=== PATIENT | female | born 1940 | race Caucasian/White ===

== ENCOUNTER 2018-03-06 16:42 | Emergency (ER) | payer MEDICARE, OTHER ==
[2018-03-06] MEDS ORDERED: Diltiazem 25 MG/5 ML SDV IVPUSH ONE (16:53)
[2018-03-06] MEDS ORDERED: Sodium Chloride 0.9% 10 ML Syringe FLUSH PRN (16:53)
--- NOTE | 2018-03-06 17:12 | EDM.PDOC ---
ED HPI GENERAL MEDICAL PROBLEM - General Chief Complaint: Chest Pain Stated Complaint: chest pain Time Seen by Provider: 03/06/18 16:53 Source of Information: Reports: Patient History Limitations: Reports: No Limitations - History of Present Illness INITIAL COMMENTS - FREE TEXT/NARRATIVE: Patient was seen in the [facility] and sent here for further evaluation due to chest pain. She states chest pain started at 3 pm. She took a nitro x1 which had no effect except to cause a headache. She states that the chest pain is centrally located and there is no radiation to the neck, jaw, or either arms. She also states she has some urinary burning that started yesterday. She has history of coronary stent to the LAD in 2001, left leg stent in 2009. Additional medical history includes DM II, hyperlipidemia, chronic SI back pain , COPD, PVD. EKG on arrival shows a-fib with RVR which is new onset. She denies abdominal pain, nausea, vomiting, blood in urine or stool. She states she has dyspnea, but this is not new and it is not worse. Onset: Sudden Location: Reports: Chest Quality: Reports: Ache Severity: Moderate Worsens with: Reports: Movement Associated Symptoms: Reports: Chest Pain - Related Data Allergies Allergy/AdvReac Type Severity Reaction Status Date / Time DUST MITE EXTRACT Allergy Itching Uncoded 03/06/18 17:46 Home Meds: Home Meds Albuterol Sulfate [Albuterol Sulfate HFA] 2 puff INH Q4H PRN 06/13/14 [History] Atenolol 25 mg PO DAILY 06/13/14 [History] Lisinopril 10 mg PO DAILY 06/13/14 [History] Nitroglycerin [Nitrostat] 0.4 mg SL ASDIRECTED PRN 06/13/14 [History] Catie-Pa 1 tab PO DAILY PRN 06/13/14 [History] Simvastatin [Zocor] 40 mg PO DAILY 06/13/14 [History] metFORMIN [Glucophage XR] 1,000 mg PO BID 06/13/14 [History] Aspirin [Halfprin] 81 mg PO DAILY 10/13/15 [History] Hydrocodone/Acetaminophen [[place] 5-325] 1 - 2 tab PO Q6H PRN 10/13/15 [History] Ibuprofen [Motrin] 800 mg PO TID PRN 10/13/15 [History] Gabapentin 300 mg PO BID 06/07/16 [History] Omeprazole 20 mg PO DAILY 06/07/16 [History] Metoprolol Tartrate [Lopressor] 25 mg PO DAILY 03/06/18 [History] Pregabalin [Lyrica] 150 mg PO BID 03/06/18 [History] Past Medical History HEENT History: Reports: Cataract Cardiovascular History: Reports: CAD, High Cholesterol, Hypertension, [place], PVD Other Cardiovascular History: carotid stenosis Respiratory History: Reports: COPD Gastrointestinal History: Reports: Irritable Bowel Syndrome Other Gastrointestinal History: RLQ abdominal pain Other Genitourinary History: hematuria Other IN SCHOOL SUSPENSION AIDE History: DDD, degnerative disc disease, cervical and lumbar. foraminal stenosis of cervical region. foraminal stenosis of lumbar region. lumbar disc herniation. bilateral shoulder pain Musculoskeletal History: Reports: Back Pain, Chronic, Osteoporosis Other Musculoskeletal History: orif left heel Neurological History: Reports: Neuropathy, Diabetic Other Psychiatric History: tobacco use Endocrine/Metabolic History: Reports: Diabetes, Type II - Infectious Disease History Infectious Disease History: Reports: None - Past Surgical History Cardiovascular Surgical History: Reports: Coronary Artery Stent Musculoskeletal Surgical History: Reports: Carpal Tunnel ED ROS GENERAL - Review of Systems Review Of Systems: See Below Constitutional: Reports: No Symptoms HEENT: Reports: No Symptoms Respiratory: Reports: Shortness of Breath Cardiovascular: Reports: Chest Pain, Dyspnea on Exertion Endocrine: Reports: No Symptoms GI/Abdominal: Reports: No Symptoms : Reports: No Symptoms Musculoskeletal: Reports: Back Pain Skin: Reports: No Symptoms Neurological: Reports: No Symptoms Psychiatric: Reports: No Symptoms Hematologic/Lymphatic: Reports: No Symptoms Immunologic: Reports: No Symptoms ED EXAM, GENERAL - Physical Exam Exam: See Below Exam Limited By: No Limitations General Appearance: Alert, WD/WN, No Apparent Distress Eye Exam: Bilateral Eye: EOMI, Normal Inspection, PERRL Ears: Normal TMs Ear Exam: Bilateral Ear: Auricle Normal, Canal Normal, TM normal Nose: Normal Inspection, Normal Mucosa, No Blood Head: Atraumatic, Normocephalic Neck: Normal Inspection, Supple, Non-Tender, Full Range of Motion Respiratory/Chest: No Respiratory Distress, Lungs Clear, Normal Breath Sounds, No Accessory Muscle Use, Chest Non-Tender Cardiovascular: No Edema, Irregularly Irregular Peripheral Pulses: 2+: Posterior Tibial (L), Posterior Tibial (R), Dorsalis Pedis (L), Dorsalis Pedis (R) GI/Abdominal: Normal Bowel Sounds, Soft, Non-Tender, No Organomegaly, No Distention, No Abnormal Bruit, No Mass Back Exam: Normal Inspection, Full Range of Motion, NT Extremities: Normal Inspection, Normal Range of Motion, Non-Tender, Normal Capillary Refill, No Pedal Edema Neurological: Alert, Oriented, CN II-XII Intact, Normal Cognition, Normal Gait, Normal Reflexes, No Motor/Sensory Deficits Psychiatric: Normal Affect, Normal Mood Skin Exam: Warm, Dry, Intact, Normal Color, No Rash Lymphatic: No Adenopathy Course - Vital Signs Last Recorded V/S: Last Vital Signs Temp 36.3 C 03/06/18 16:42 Pulse 141 H 03/06/18 19:01 Resp 16 03/06/18 19:01 BP 121/77 03/06/18 19:01 Pulse Ox 97 03/06/18 19:01 - Orders/Labs/Meds Orders: Active Orders 24 hr Category Date Time Status EKG Documentation Completion [RC] STAT Care 03/06/18 16:53 Active Chest 2V [CR] Stat Exams 03/06/18 16:53 Taken Chest PE [Ang Chest] [CT] Stat Exams 03/06/18 18:03 Ordered CBC W/O DIFF,HEMOGRAM [HEME] Q3D Lab 03/07/18 07:00 Ordered CBC W/O DIFF,HEMOGRAM [HEME] Q3D Lab 03/10/18 07:00 Ordered CBC W/O DIFF,HEMOGRAM [HEME] Q3D Lab 03/13/18 07:00 Ordered CBC W/O DIFF,HEMOGRAM [HEME] Q3D Lab 03/16/18 07:00 Ordered CBC W/O DIFF,HEMOGRAM [HEME] Q3D Lab 03/19/18 07:00 Ordered CBC W/O DIFF,HEMOGRAM [HEME] Q3D Lab 03/22/18 07:00 Ordered CBC W/O DIFF,HEMOGRAM [HEME] Q3D Lab 03/25/18 07:00 Ordered URINALYSIS W/MICROSCOPIC [UA W/MICROSCOPIC] [URIN] Stat Lab 03/06/18 17:55 Ordered Diltiazem 100 MG in NS Adv @ 5 MG/HR(100ml) Med 03/06/18 19:00 Ordered Diltiazem [Cardizem] 100 mg Sodium Chloride 0.9% [Normal Saline] 100 ml IV TITRATE Heparin Sodium/0.45% NaCl [Heparin 25,000 Units in 1/2 Med 03/06/18 19:00 Ordered NS 500 ML] 25,000 units in 500 ml IV TITRATE Sodium Chloride 0.9% [Saline Flush] Med 03/06/18 16:53 Active 10 ml FLUSH ASDIRECTED PRN Saline Lock Insert [OM.PC] Routine Oth 03/06/18 16:53 Ordered Medication Orders Diltiazem HCl 100 mg/ Sodium (Chloride) 100 mls @ 5 mls/hr IV TITRATE SARAH; Protocol Last Admin: 03/06/18 19:01 Dose: 5 mg/hr, 5 mls/hr Heparin Sodium/Sodium Chloride (Heparin 25,000 Units In 1/2 Ns 500 Ml) 25,000 units in 500 mls @ 20 mls/hr IV TITRATE SARAH; Protocol Last Admin: 03/06/18 19:17 Dose: 1,000 units/hr, 20 mls/hr Sodium Chloride (Saline Flush) 10 ml FLUSH ASDIRECTED PRN PRN Reason: Keep Vein Open Labs: Laboratory Tests 03/06/18 03/06/18 03/06/18 Range/Units 17:24 17:25 17:25 WBC 8.2 (4.0-10.0) x10^3/uL RBC 4.29 (4.00-5.50) x10^6/uL Hgb 13.5 (12.0-16.0) g/dL Hct 40.7 (33.0-47.0) % MCV 94.9 H (78.0-93.0) fL MCH 31.5 (26.0-32.0) pg MCHC 33.2 (32.0-36.0) g/dL RDW Coeff of [place] 14.3 (10.0-15.0) % Plt Count 110 L (130-400) x10^3/uL Neut % (Auto) 59.4 (50.0-80.0) % Lymph % (Auto) 25.6 (25.0-50.0) % [place] % (Auto) 13.2 H (2.0-11.0) % Eos % (Auto) 1.6 (0.0-4.0) % Baso % (Auto) 0.2 (0.2-1.2) % PT 9.5 L (9.6-11.4) SEC INR 0.9 L (2.0-3.5) APTT (21.3-33.5) SEC D-Dimer, Quantitative (<=0.58) mg/LFEU Sodium (136-145) mmol/L Potassium (3.5-5.1) mmol/L Chloride (98-107) mmol/L Carbon Dioxide (21-32) mmol/L Anion Gap (10-20) mmol/L BUN (7-18) mg/dL Creatinine (0.55-1.02) mg/dL Est Cr Clr Drug Dosing Estimated GFR (MDRD) Glucose (74-106) mg/dL Calcium (8.5-10.1) mg/dL Corrected Calcium (8.5-10.1) mg/dL Magnesium (1.8-2.4) mg/dL Total Bilirubin (0.2-1.0) mg/dL AST (15-37) U/L ALT (14-59) U/L Alkaline Phosphatase (46-116) U/L POC Troponin I 0.01 (0.00-0.08) ng/mL NT-Pro-B Natriuret Pep (<=450) pg/mL Total Protein (6.4-8.2) g/dL Albumin (3.4-5.0) g/dL Globulin Albumin/Globulin Ratio TSH, Ultra Sensitive (0.358-3.74) uIU/mL Urine Color (YELLOW) Urine Appearance (CLEAR) Urine pH (5.0-8.0) Ur Specific [place] Urine Protein (NEGATIVE) mg/dL Urine Glucose (UA) (NEGATIVE) mg/dL Urine Ketones (NEGATIVE) mg/dL Urine Occult Blood (NEGATIVE) Urine Nitrite (NEGATIVE) Urine Bilirubin (NEGATIVE) Urine Urobilinogen (0.2) EU/dL Ur Leukocyte Esterase (NEGATIVE) Urine RBC (NOT SEEN) /HPF Urine WBC (NOT SEEN) /HPF Ur Squamous Epith Cells (NEGATIVE) /HPF Urine Bacteria (NEGATIVE) /HPF Urine Mucus (NEGATIVE) /LPF 03/06/18 03/06/18 03/06/18 Range/Units 17:25 17:25 17:25 WBC (4.0-10.0) x10^3/uL RBC (4.00-5.50) x10^6/uL Hgb (12.0-16.0) g/dL Hct (33.0-47.0) % MCV (78.0-93.0) fL MCH (26.0-32.0) pg MCHC (32.0-36.0) g/dL RDW Coeff of [place] (10.0-15.0) % Plt Count (130-400) x10^3/uL Neut % (Auto) (50.0-80.0) % Lymph % (Auto) (25.0-50.0) % [place] % (Auto) (2.0-11.0) % Eos % (Auto) (0.0-4.0) % Baso % (Auto) (0.2-1.2) % PT (9.6-11.4) SEC INR (2.0-3.5) APTT 19.2 L (21.3-33.5) SEC D-Dimer, Quantitative 0.90 H (<=0.58) mg/LFEU Sodium 142 (136-145) mmol/L Potassium 3.9 (3.5-5.1) mmol/L Chloride 106 (98-107) mmol/L Carbon Dioxide 25 (21-32) mmol/L Anion Gap 14.9 (10-20) mmol/L BUN 13 (7-18) mg/dL Creatinine 0.9 (0.55-1.02) mg/dL Est Cr Clr Drug Dosing TNP Estimated GFR (MDRD) > 60 Glucose 125 H (74-106) mg/dL Calcium 9.6 (8.5-10.1) mg/dL Corrected Calcium 9.68 (8.5-10.1) mg/dL Magnesium (1.8-2.4) mg/dL Total Bilirubin 0.3 (0.2-1.0) mg/dL AST 16 (15-37) U/L ALT 27 (14-59) U/L Alkaline Phosphatase 74 (46-116) U/L POC Troponin I (0.00-0.08) ng/mL NT-Pro-B Natriuret Pep 910 H (<=450) pg/mL Total Protein 8.1 (6.4-8.2) g/dL Albumin 3.9 (3.4-5.0) g/dL Globulin 4.2 Albumin/Globulin Ratio 0.93 TSH, Ultra Sensitive 1.892 (0.358-3.74) uIU/mL Urine Color (YELLOW) Urine Appearance (CLEAR) Urine pH (5.0-8.0) Ur Specific [place] Urine Protein (NEGATIVE) mg/dL Urine Glucose (UA) (NEGATIVE) mg/dL Urine Ketones (NEGATIVE) mg/dL Urine Occult Blood (NEGATIVE) Urine Nitrite (NEGATIVE) Urine Bilirubin (NEGATIVE) Urine Urobilinogen (0.2) EU/dL Ur Leukocyte Esterase (NEGATIVE) Urine RBC (NOT SEEN) /HPF Urine WBC (NOT SEEN) /HPF Ur Squamous Epith Cells (NEGATIVE) /HPF Urine Bacteria (NEGATIVE) /HPF Urine Mucus (NEGATIVE) /LPF 03/06/18 03/06/18 Range/Units 17:25 17:55 WBC (4.0-10.0) x10^3/uL RBC (4.00-5.50) x10^6/uL Hgb (12.0-16.0) g/dL Hct (33.0-47.0) % MCV (78.0-93.0) fL MCH (26.0-32.0) pg MCHC (32.0-36.0) g/dL RDW Coeff of [place] (10.0-15.0) % Plt Count (130-400) x10^3/uL Neut % (Auto) (50.0-80.0) % Lymph % (Auto) (25.0-50.0) % [place] % (Auto) (2.0-11.0) % Eos % (Auto) (0.0-4.0) % Baso % (Auto) (0.2-1.2) % PT (9.6-11.4) SEC INR (2.0-3.5) APTT (21.3-33.5) SEC D-Dimer, Quantitative (<=0.58) mg/LFEU Sodium (136-145) mmol/L Potassium (3.5-5.1) mmol/L Chloride (98-107) mmol/L Carbon Dioxide (21-32) mmol/L Anion Gap (10-20) mmol/L BUN (7-18) mg/dL Creatinine (0.55-1.02) mg/dL Est Cr Clr Drug Dosing Estimated GFR (MDRD) Glucose (74-106) mg/dL Calcium (8.5-10.1) mg/dL Corrected Calcium (8.5-10.1) mg/dL Magnesium 1.6 L (1.8-2.4) mg/dL Total Bilirubin (0.2-1.0) mg/dL AST (15-37) U/L ALT (14-59) U/L Alkaline Phosphatase (46-116) U/L POC Troponin I (0.00-0.08) ng/mL NT-Pro-B Natriuret Pep (<=450) pg/mL Total Protein (6.4-8.2) g/dL Albumin (3.4-5.0) g/dL Globulin Albumin/Globulin Ratio TSH, Ultra Sensitive (0.358-3.74) uIU/mL Urine Color Yellow (YELLOW) Urine Appearance Clear (CLEAR) Urine pH 6.0 (5.0-8.0) Ur Specific [place] 1.010 Urine Protein 100 H (NEGATIVE) mg/dL Urine Glucose (UA) Negative (NEGATIVE) mg/dL Urine Ketones Negative (NEGATIVE) mg/dL Urine Occult Blood Trace-intact H (NEGATIVE) Urine Nitrite Negative (NEGATIVE) Urine Bilirubin Negative (NEGATIVE) Urine Urobilinogen 0.2 (0.2) EU/dL Ur Leukocyte Esterase Negative (NEGATIVE) Urine RBC 0-5 (NOT SEEN) /HPF Urine WBC 0-5 (NOT SEEN) /HPF Ur Squamous Epith Cells Rare (NEGATIVE) /HPF Urine Bacteria Not seen (NEGATIVE) /HPF Urine Mucus Not seen (NEGATIVE) /LPF Meds: Medications Generic Name Dose Route Start Last Admin Trade Name Freq PRN Reason Stop Dose Admin Diltiazem HCl 100 mg/ Sodium 100 mls @ 5 mls/hr 03/06/18 19:00 03/06/18 19:01 Chloride IV 5 mg/hr TITRATE SARAH 5 mls/hr Administration Protocol 5 MG/HR Heparin Sodium/Sodium Chloride 25,000 units in 500 mls @ 20 mls/hr 03/06/18 19 :00 03/06/18 19:17 Heparin 25,000 Units In 1/2 Ns 500 Ml IV 1,000 units/hr TITRATE SARAH 20 mls/hr Administration Protocol 1,000 UNITS/HR Sodium Chloride 10 ml 03/06/18 16:53 Saline Flush FLUSH ASDIRECTED PRN Keep Vein Open Discontinued Medications Generic Name Dose Route Start Last Admin Trade Name Noemi PRN Reason Stop Dose Admin Aspirin 324 mg 03/06/18 17:41 03/06/18 16:45 Aspirin PO 03/06/18 17:42 324 mg ONETIME ONE Administration Diltiazem HCl 20 mg 03/06/18 16:53 03/06/18 17:26 Diltiazem IVPUSH 03/06/18 16:54 20 mg ONETIME ONE Administration Diltiazem HCl Confirm 03/06/18 18:57 03/06/18 19:05 Cardizem Administered 03/06/18 18:58 Not Given Dose 100 mg .ROUTE .STK-MED ONE Heparin Sodium (Porcine) 4,000 units 03/06/18 18:59 03/06/18 19:09 Heparin Sodium IVPUSH 03/06/18 19:00 4,000 units ONETIME ONE Administration Diltiazem HCl 100 mg/ Sodium 100 mls @ 5 mls/hr 03/06/18 18:30 Chloride IV TITRATE SARAH Protocol 5 MG/HR Heparin Sodium/Sodium Chloride 25,000 units in 500 mls @ 0 mls/hr 03/06/18 18: 45 Heparin 25,000 Units In 1/2 Ns 500 Ml IV TITRATE SARAH Protocol 1,000 UNITS/KG/HR Heparin Sodium/Sodium Chloride Confirm 03/06/18 19:14 Heparin 25,000 Units In 1/2 Ns 500 Ml Administered 03/06/18 19:15 Dose 500 mls @ as directed .ROUTE .STK-MED ONE Iopamidol 100 ml 03/06/18 18:27 03/06/18 18:28 Isovue-300 (61%) IVPUSH 03/06/18 18:28 100 ml ONETIME ONE Administration - Re-Assessments/Exams Free Text/Narrative Re-Assessment/Exam: 03/06/18 19:21 Chest x-ray is negative, as is the CTA chest. Departure - Departure Time of Disposition: 19:42 Disposition: DC/Tfer to Acute Hospital 02 Reason for Transfer *Q: Other Condition: Good Clinical Impression: Paroxysmal atrial fibrillation with rapid ventricular response Referrals: Jessi Stark NP [Primary Care Provider] - Forms: ED Department Discharge, Interfacility Transfer [facility] ED Communication - Discussed Case With (1) Discussed Case With (1): Admitting Provider (Dr. Webb given report. He will accept patient. Will start on cardizem and heparin drips) - Problem List & Annotations (1) Paroxysmal atrial fibrillation with rapid ventricular response SNOMED Code(s): 088074662, 404122380295745 Code(s): I48.0 - PAROXYSMAL ATRIAL FIBRILLATION Status: Acute Priority: Medium Current Visit: Yes - Problem List Review Problem List Initiated/Reviewed/Updated: Yes - My Orders Last 24 Hours: My Active Orders 03/06/18 16:53 EKG Documentation Completion [RC] STAT Chest 2V [CR] Stat Sodium Chloride 0.9% [Saline Flush] 10 ml FLUSH ASDIRECTED PRN Saline Lock Insert [OM.PC] Routine 03/06/18 17:55 URINALYSIS W/MICROSCOPIC [UA W/MICROSCOPIC] [URIN] Stat 03/06/18 18:03 Chest PE [Ang Chest] [CT] Stat 03/06/18 19:00 Diltiazem 100 MG in NS Adv @ 5 MG/HR(100ml) Diltiazem [Cardizem] 100 mg Sodium Chloride 0.9% [Normal Saline] 100 ml IV TITRATE Heparin Sodium/0.45% NaCl [Heparin 25,000 Units in 1/2 NS 500 ML] 25,000 units in 500 ml IV TITRATE 03/07/18 07:00 CBC W/O DIFF,HEMOGRAM [HEME] Q3D 03/10/18 07:00 CBC W/O DIFF,HEMOGRAM [HEME] Q3D 03/13/18 07:00 CBC W/O DIFF,HEMOGRAM [HEME] Q3D 03/16/18 07:00 CBC W/O DIFF,HEMOGRAM [HEME] Q3D 03/19/18 07:00 CBC W/O DIFF,HEMOGRAM [HEME] Q3D 03/22/18 07:00 CBC W/O DIFF,HEMOGRAM [HEME] Q3D 03/25/18 07:00 CBC W/O DIFF,HEMOGRAM [HEME] Q3D - Assessment/Plan Last 24 Hours: My Active Orders 03/06/18 16:53 EKG Documentation Completion [RC] STAT Chest 2V [CR] Stat Sodium Chloride 0.9% [Saline Flush] 10 ml FLUSH ASDIRECTED PRN Saline Lock Insert [OM.PC] Routine 03/06/18 17:55 URINALYSIS W/MICROSCOPIC [UA W/MICROSCOPIC] [URIN] Stat 03/06/18 18:03 Chest PE [Ang Chest] [CT] Stat 03/06/18 19:00 Diltiazem 100 MG in NS Adv @ 5 MG/HR(100ml) Diltiazem [Cardizem] 100 mg Sodium Chloride 0.9% [Normal Saline] 100 ml IV TITRATE Heparin Sodium/0.45% NaCl [Heparin 25,000 Units in 1/2 NS 500 ML] 25,000 units in 500 ml IV TITRATE 03/07/18 07:00 CBC W/O DIFF,HEMOGRAM [HEME] Q3D 03/10/18 07:00 CBC W/O DIFF,HEMOGRAM [HEME] Q3D 03/13/18 07:00 CBC W/O DIFF,HEMOGRAM [HEME] Q3D 03/16/18 07:00 CBC W/O DIFF,HEMOGRAM [HEME] Q3D 03/19/18 07:00 CBC W/O DIFF,HEMOGRAM [HEME] Q3D 03/22/18 07:00 CBC W/O DIFF,HEMOGRAM [HEME] Q3D 03/25/18 07:00 CBC W/O DIFF,HEMOGRAM [HEME] Q3D Assessment:: new onset a-fib with RVR Plan: Transfer to [place] in [place]. Dr. Webb to assume care.
[2018-03-06] MEDS ORDERED: Aspirin 81 MG Tab.Chew PO ONE (17:41)
[2018-03-06 17:59] LABS: CHLORIDE,CL 106 mmol/L (98-107); SODIUM,NA 142 mmol/L (136-145)
[2018-03-06 18:00] LABS: ANION GAP 14.9 mmol/L (10-20)
[2018-03-06] MEDS ORDERED: Iopamidol 612 MG/ML 100 ML Bottle IVPUSH ONE (18:27)
[2018-03-06] MEDS ORDERED: Diltiazem 100 MG in Sodium Chloride 0.9% 100 ML IV SCH ×2 (18:30→19:00)
[2018-03-06] MEDS ORDERED: Heparin Sodium/0.45% NaCl 25,000 UNITS/500 ML BAG IV SCH ×2 (18:45→19:00)
[2018-03-06] MEDS ORDERED: Diltiazem 100 MG AdvVial ONE (18:57)
[2018-03-06] MEDS ORDERED: Heparin Sodium 5,000 Units/ML Vial IVPUSH ONE (18:59)
[2018-03-06 19:02] VITALS: BP 121/77
[2018-03-06] MEDS ORDERED: Heparin Sodium/0.45% NaCl 500 ML ONE (19:14)
== END 2018-03-06 19:43 | disposition short-term general hospital (02) ==
LOC: VM.ED 16:42
DX: I48.0 Paroxysmal atrial fibrillation (principal); E11.40 Type 2 diabetes mellitus with diabetic neuropathy, unspecified; I10 Essential (primary) hypertension; E78.00 Pure hypercholesterolemia, unspecified; I25.2 Old myocardial infarction; J44.9 Chronic obstructive pulmonary disease, unspecified; Z79.82 Long term (current) use of aspirin; Z79.84 Long term (current) use of oral hypoglycemic drugs; Z79.899 Other long term (current) drug therapy; Z91.09 Other allergy status, other than to drugs and biological substances
CPT/HCPCS: 36415; 71046; 71275; 80053; 81001; 83735; 83880; 84443; 84484; 85025; 85379; 85610; 85730; 93005; 96365; 96368; 96376; 99284-GF; 99285; A9270-GY; J1644; J3490; J7050; Q9967

== ENCOUNTER 2018-09-28 06:27 | Day surgery (SDC) | payer MEDICARE, OTHER ==
[~2018-09-28 06:27] MED LIST: Lactated Ringers 1,000 ML IV SCH
[2018-09-28] MEDS ORDERED: fentaNYL 100 MCG/2 ML SDV ONE (08:05)
[2018-09-28] MEDS ORDERED: Propofol 200 MG/20 ML SDV ONE ×2 (08:05→08:32)
[2018-09-28 09:30] VITALS: BP 186/89
--- NOTE | 2018-09-28 16:31 | OR ---
DATE OF SURGERY: 09/28/2018 REFERRING PROVIDER: Jessi Stark NP PRE-OPERATIVE DIAGNOSES: History of colon polyps. Last colonoscopy in October 2015 revealed 3 adenomas. POST-OPERATIVE DIAGNOSES: 1. A 3 mm polyp at 70 cm removed with cold forceps. 2. Significant diverticulosis, mainly left-sided. 3. Tortuous sigmoid colon. 4. Mild hemorrhoids. PROCEDURE: Colonoscopy with polypectomy x1 using cold forceps. SURGEON: Fidencio Gutierrez M.D. ANESTHESIA: Monitored anesthesia care. BOWEL PREP: Owen Dickerson is a 77-year-old female was brought to the endoscopy suite after discussing risks and benefits of the procedure. Informed consent was obtained for conscious sedation and colonoscopy with or without biopsy and/or polypectomy. We also discussed possibility of missed lesions. Pre-procedure exam was unremarkable. IV, oxygen, and monitors were placed. The patient was placed in the left lateral decubitus position. Sedation was administered and a digital rectal exam was performed which was unremarkable. Colonoscope was passed into the rectum and slowly advanced all the way to the cecum. The patient did have tortuous sigmoid colon, which required moving the patient on her back. She get passed this area. She was then moved back on to her left side. She also required some abdominal pressure to obtain final cecal intubation. Cecum was viewed and photographed. The colonoscope was slowly withdrawn and the mucosa was closed observed in a direct circumferential manner. The ascending colon was unremarkable. The transverse colon revealed 3 mm polyp at 70 cm, removed with cold forceps. The descending and sigmoid colon were remarkable for significant diverticulosis. Sigmoid colon was also quite tortuous. Retroflexion was performed and rectal mucosa was remarkable for some mild hemorrhoids, not acutely inflamed. Scope was removed. The patient tolerated the procedure well. The patient was monitored until that baseline status. Discharge instructions were reviewed and the patient was discharged in good condition. COMPLICATIONS: None. TOTAL TIME: 31 minutes ESTIMATED BLOOD LOSS: Less than 1 mL. RECOMMENDATIONS/FOLLOW-UP: We will await results of path report to determine ideal followup interval. We will have the patient hold her aspirin and Eliquis for 3 days to limit any chance of bleeding. I would like to kindly thank you, Jessi Stark for this referral. DMB: 09/28/2018 10:11:58 MODL: 09/28/2018 16:23:57 /[id number]
== END 2018-09-28 10:30 | disposition home or self-care (01) ==
LOC: VM.SDS 06:27
PROVIDERS: ATTEND Family Medicine
DX: Z12.11 Encounter for screening for malignant neoplasm of colon (principal); K63.5 Polyp of colon; K64.9 Unspecified hemorrhoids; K57.30 Diverticulosis of large intestine without perforation or abscess without bleeding; K63.89 Other specified diseases of intestine; E11.21 Type 2 diabetes mellitus with diabetic nephropathy; E11.59 Type 2 diabetes mellitus with other circulatory complications; I10 Essential (primary) hypertension; E66.9 Obesity, unspecified; Z68.32 Body mass index [BMI] 32.0-32.9, adult; I48.0 Paroxysmal atrial fibrillation; E78.00 Pure hypercholesterolemia, unspecified; E78.5 Hyperlipidemia, unspecified; I25.10 Atherosclerotic heart disease of native coronary artery without angina pectoris; I48.91 Unspecified atrial fibrillation; K21.9 Gastro-esophageal reflux disease without esophagitis; Z86.010 Personal history of colon polyps; Z87.891 Personal history of nicotine dependence; Z79.82 Long term (current) use of aspirin; Z79.84 Long term (current) use of oral hypoglycemic drugs; Z79.01 Long term (current) use of anticoagulants
CPT/HCPCS: 00811; 82962; 88305; J2704; J3010; J7120

== ENCOUNTER 2021-11-28 21:40 | Inpatient (IN) | payer MEDICARE, OTHER ==
[2021-11-28] MEDS ORDERED: Sodium Chloride 0.9% 10 ML Syringe FLUSH PRN (21:47)
[2021-11-28] MEDS ORDERED: Diltiazem 50 MG/10 ML SDV IVPUSH ONE ×2 (21:49→22:59)
[2021-11-28] MEDS ORDERED: Sodium Chloride 0.9% 1,000 ML IV SCH (22:00)
[2021-11-28] MEDS ORDERED: Diltiazem 125 MG in Sodium Chloride 0.9% 100 ML IV SCH (22:30)
[2021-11-28 22:34] LABS: PTT,PARTIAL THROMBOPLSTIN TIME 32.5 SEC (20.5-30.9)
[2021-11-28 22:46] LABS: CHLORIDE,CL 103 mmol/L (98-107); SODIUM,NA 142 mmol/L (136-145)
[2021-11-28] MEDS ORDERED: Acetaminophen/HYDROcodone 325-5 MG Tab PO PRN (23:42)
[2021-11-28] MEDS ORDERED: Cyclobenzaprine 10 MG Tab PO PRN (23:42)
[2021-11-28] MEDS ORDERED: Zolpidem 5 MG Tab PO PRN (23:42)
[2021-11-28] MEDS ORDERED: Albuterol HFA 18 Gm Inhaler INH PRN (23:42)
[2021-11-29] MEDS ORDERED: Diltiazem 125 MG in Sodium Chloride 0.9% 100 ML IV SCH (00:30)
[2021-11-29] MEDS ORDERED: Acetaminophen 325 MG Tab PO ONE (06:50)
[2021-11-29] MEDS: Omeprazole 20 MG Cap.CR PO SCH (08:05)
[2021-11-29] MEDS: metFORMIN 500 MG Tab PO SCH ×2 (08:05→20:19)
[2021-11-29 08:11] LABS: CHLORIDE,CL 103 mmol/L (98-107); SODIUM,NA 142 mmol/L (136-145)
[2021-11-29] MEDS ORDERED: Simvastatin 40 MG Tab PO SCH ×2 (09:00→21:00)
[2021-11-29] MEDS ORDERED: Metoprolol Succinate 50 MG Tab.ER PO SCH (09:00)
[2021-11-29] MEDS ORDERED: Rivaroxaban 10 MG Tab PO SCH ×2 (09:00→21:00)
[2021-11-29] MEDS ORDERED: Lisinopril 10 MG Tab PO SCH (09:00)
[2021-11-29] MEDS ORDERED: Magnesium Sulfate/Water 2 GM in Premix Bag 1 BAG IV ONE (09:37)
[2021-11-29] MEDS: cefTRIAXone 2 GM Vial IVPUSH SCH (10:48)
[2021-11-29] MEDS: metroNIDAZOLE/Normal Saline 500 MG in Premix Bag 1 BAG IV SCH ×2 (10:59→17:52)
[2021-11-29] MEDS ORDERED: Sodium Chloride 0.9% 1,000 ML IV SCH (11:00)
[2021-11-29] MEDS: Metoprolol Succinate 50 MG Tab.ER PO SCH (17:48)
[2021-11-29] MEDS ORDERED: XARELTO 20 MG PO SCH (19:00)
[2021-11-29] MEDS ORDERED: Simvastatin 10 MG Tab PO SCH (21:00)
[2021-11-30] MEDS: metroNIDAZOLE/Normal Saline 500 MG in Premix Bag 1 BAG IV SCH ×2 (01:31→08:58)
[2021-11-30 07:11] LABS: CHLORIDE,CL 106 mmol/L (98-107); SODIUM,NA 143 mmol/L (136-145)
[2021-11-30 07:12] LABS: ANION GAP 13.2 mmol/L (5-15)
[2021-11-30] MEDS: Metoprolol Succinate 50 MG Tab.ER PO SCH (08:46)
[2021-11-30] MEDS: Omeprazole 20 MG Cap.CR PO SCH (08:50)
[2021-11-30] MEDS: metFORMIN 500 MG Tab PO SCH (08:50)
[2021-11-30] MEDS: cefTRIAXone 2 GM Vial IVPUSH SCH (08:51)
[2021-11-30] MEDS ORDERED: Lisinopril 10 MG Tab PO SCH (09:15)
[2021-11-30 10:44] VITALS: BP 142/60; PULSE 51
[2021-11-30] MEDS ORDERED: metFORMIN 500 MG Tab PO SCH (18:00)
== END 2021-11-30 12:15 | disposition home or self-care (01) | DRG 872 ==
LOC: VM.ED 21:40 → VM.MS 23:00
PROVIDERS: ADMIT Family Medicine; ATTEND Family Medicine
DX: A41.9 Sepsis, unspecified organism (principal); K57.32 Diverticulitis of large intestine without perforation or abscess without bleeding; E83.42 Hypomagnesemia; E11.40 Type 2 diabetes mellitus with diabetic neuropathy, unspecified; E11.51 Type 2 diabetes mellitus with diabetic peripheral angiopathy without gangrene; I48.0 Paroxysmal atrial fibrillation; G47.30 Sleep apnea, unspecified; I25.10 Atherosclerotic heart disease of native coronary artery without angina pectoris; G47.33 Obstructive sleep apnea (adult) (pediatric); I10 Essential (primary) hypertension; M50.30 Other cervical disc degeneration, unspecified cervical region; M51.36 Other intervertebral disc degeneration, lumbar region; M19.90 Unspecified osteoarthritis, unspecified site; J44.9 Chronic obstructive pulmonary disease, unspecified; G25.81 Restless legs syndrome; Z79.01 Long term (current) use of anticoagulants; E11.42 Type 2 diabetes mellitus with diabetic polyneuropathy; Z79.82 Long term (current) use of aspirin; M15.9 Polyosteoarthritis, unspecified; Z20.822 Contact with and (suspected) exposure to COVID-19; K21.9 Gastro-esophageal reflux disease without esophagitis; E66.09 Other obesity due to excess calories; R32 Unspecified urinary incontinence; M81.0 Age-related osteoporosis without current pathological fracture; E78.5 Hyperlipidemia, unspecified; Z68.32 Body mass index [BMI] 32.0-32.9, adult; Z79.899 Other long term (current) drug therapy; Z79.84 Long term (current) use of oral hypoglycemic drugs; I25.2 Old myocardial infarction; Z87.891 Personal history of nicotine dependence; Z90.49 Acquired absence of other specified parts of digestive tract; Z90.710 Acquired absence of both cervix and uterus
CPT/HCPCS: 36415; 80048; 80053; 82947; 83605; 83735; 83880; 84100; 84443; 84484; 85025; 85610; 85730; 86140; 93005; 93010; 96374; 96376; 99284; 99285-25; A9270-GY; J0696; J3475; J3490; J7030; U0002

== ENCOUNTER 2024-03-22 08:05 | Emergency (ER) | payer MEDICARE, OTHER ==
[2024-03-22 08:33] LABS: BASOPHILS PERCENT AUTO 0.4 % (0.2-1.2); EOSINOPHILS ABSOLUTE AUTO 0.1 x10^3/uL (0.0-0.5); EOSINOPHILS PERCENT AUTO 1.5 % (0.0-4.0); HEMATOCRIT 41.4 % (33.0-47.0); HEMOGLOBIN 13.6 g/dL (12.0-16.0); IMMATURE GRAN ABSOLUTE AUTO 0.01 x10^3/uL (0.00-0.07); LYMPHOCYTES ABSOLUTE AUTO 2.5 x10^3/uL (1.0-4.8); LYMPHOCYTES PERCENT AUTO 33.6 % (25.0-50.0); MEAN CORPUSCULAR HEMOGLOBIN 31.5 pg (26.0-32.0); MEAN CORPUSCULAR HGB CONC 32.9 g/dL (32.0-36.0); MEAN CORPUSCULAR VOLUME 95.8 fL (78.0-93.0); MONOCYTES ABSOLUTE AUTO 0.9 x10^3/uL (0.0-0.8); MONOCYTES PERCENT AUTO 12.5 % (2.0-11.0); NEUTROPHILS ABSOLUTE AUTO 3.9 x10^3/uL (1.8-7.7); NEUTROPHILS PERCENT AUTO 51.9 % (50.0-80.0); PLATELET COUNT,PLT 202 x10^3/uL (130-400); RED BLOOD CELL COUNT 4.32 x10^6/uL (4.00-5.50); WHITE BLOOD CELL COUNT,WBC 7.5 x10^3/uL (4.0-10.0)
[2024-03-22] MEDS: Aspirin 81 MG Tab.Chew PO ONE (08:37)
[2024-03-22] MEDS: Nitroglycerin 0.4 MG Tab.SL SL PRN (08:42)
[2024-03-22 08:49] LABS: PROTHROMBIN TIME 10.2 SEC (8.9-11.5)
[2024-03-22 08:55] LABS: ANION GAP 13.5 mmol/L (5-15); CREATININE 1.2 mg/dL (0.55-1.02); EST CRCL DRUG DOSING (CG) 31.08 mL/min; MAGNESIUM 1.4 mg/dL (1.8-2.4); POTASSIUM,K 4.5 mmol/L (3.5-5.1)
[2024-03-22] MEDS: Sodium Chloride 0.9% 1,000 ML IV SCH (09:22)
[2024-03-22] MEDS: Heparin Sodium/0.45% NaCl 25,000 UNITS/500 ML BAG IV SCH (09:22)
[2024-03-22] MEDS: Heparin Sodium 5,000 Units/ML Vial IVPUSH ONE (09:22)
[2024-03-22] MEDS: Morphine 2 MG/ML SYRINGE IVPUSH ONE ×3 (09:36→14:05)
[2024-03-22] MEDS: Metoprolol Tartrate 5 MG/5 ML SDV IVPUSH ONE (10:27)
[2024-03-22] MEDS ORDERED: Metoprolol Tartrate 5 MG/5 ML SDV IVPUSH ONE (11:11)
[2024-03-22 11:40] LABS: APPEARANCE,URINE CLEAR (CLEAR); BILIRUBIN,URINE NEGATIVE (NEGATIVE); COLOR,URINE YELLOW (YELLOW); GLUCOSE,URINE NEGATIVE (NEGATIVE); KETONES,URINE NEGATIVE (NEGATIVE); LEUKOCYTE ESTERASE,URINE NEGATIVE (NEGATIVE); NITRITE,URINE NEGATIVE (NEGATIVE); OCCULT BLOOD,URINE NEGATIVE (NEGATIVE); PH,URINE 5.5 (5.0-8.0); PROTEIN,URINE NEGATIVE (NEGATIVE); UROBILINOGEN,URINE 0.2 EU/dL (0.2)
[2024-03-22] MEDS: Magnesium Sulfate/Water 2 GM in Premix Bag 1 BAG IV ONE (11:43)
== END 2024-03-22 14:15 | disposition short-term general hospital (02) ==
LOC: VM.ED 08:05 → SUPCPDRO 08:05 → VM.ED 14:15
DX: I21.4 Non-ST elevation (NSTEMI) myocardial infarction (principal); I48.0 Paroxysmal atrial fibrillation; I25.10 Atherosclerotic heart disease of native coronary artery without angina pectoris; I48.91 Unspecified atrial fibrillation; E78.00 Pure hypercholesterolemia, unspecified; J44.9 Chronic obstructive pulmonary disease, unspecified; K21.9 Gastro-esophageal reflux disease without esophagitis; E11.40 Type 2 diabetes mellitus with diabetic neuropathy, unspecified; E66.9 Obesity, unspecified; Z90.710 Acquired absence of both cervix and uterus; Z79.01 Long term (current) use of anticoagulants; Z79.84 Long term (current) use of oral hypoglycemic drugs; Z79.899 Other long term (current) drug therapy; Z68.32 Body mass index [BMI] 32.0-32.9, adult
CPT/HCPCS: 36415; 80048; 81003; 83735; 84484; 85025; 85610; 85730; 93005; 93010; 96365; 96366; 96368; 96375; 96376; 99284; 99285-25; A9270-GY; J1644; J2270; J3475; J3490; J7030

== ENCOUNTER 2025-05-23 12:29 | Emergency (ER) | payer MEDICARE, OTHER ==
[2025-05-23 13:04] LABS: BASOPHILS ABSOLUTE AUTO 0.0 x10^3/uL (0.0-0.2); BASOPHILS PERCENT AUTO 0.4 % (0.2-1.2); EOSINOPHILS ABSOLUTE AUTO 0.1 x10^3/uL (0.0-0.5); EOSINOPHILS PERCENT AUTO 0.7 % (0.0-4.0); IMMATURE GRAN ABSOLUTE AUTO 0.01 x10^3/uL (0.00-0.07); IMMATURE GRAN PERCENT AUTO 0.10 % (0.00-0.43); LYMPHOCYTES ABSOLUTE AUTO 1.8 x10^3/uL (1.0-4.8); LYMPHOCYTES PERCENT AUTO 26.3 % (25.0-50.0); MONOCYTES ABSOLUTE AUTO 0.9 x10^3/uL (0.0-0.8); MONOCYTES PERCENT AUTO 12.5 % (2.0-11.0); NEUTROPHILS ABSOLUTE AUTO 4.2 x10^3/uL (1.8-7.7); NEUTROPHILS PERCENT AUTO 60.0 % (50.0-80.0); PLATELET COUNT,PLT 208 x10^3/uL (130-400); RED BLOOD CELL COUNT 3.60 x10^6/uL (4.00-5.50); WHITE BLOOD CELL COUNT,WBC 7.0 x10^3/uL (4.0-10.0)
[2025-05-23] MEDS: Diltiazem 50 MG/10 ML SDV IVPUSH ONE ×2 (13:06→13:21)
[2025-05-23 13:31] LABS: A/G RATIO 0.95; ALANINE AMINOTRANSFERASE,ALT 36 U/L (14-59); ASPARTATE AMNIOTRANSFERASE,AST 34 U/L (15-37); BILIRUBIN TOTAL 0.5 mg/dL (0.2-1.0); BLOOD UREA NITROGEN,BUN 23 mg/dL (7-18); CARBON DIOXIDE,CO2 26 mmol/L (21-32); CHLORIDE,CL 104 mmol/L (98-107); CREATININE 1.7 mg/dL (0.55-1.02); ESTIMATED GFR 30 mL/min (>=60); GLUCOSE RANDOM 138 mg/dL (70-99); POTASSIUM,K 4.7 mmol/L (3.5-5.1); PROTEIN TOTAL,TP 7.2 g/dL (6.4-8.2); SODIUM,NA 139 mmol/L (136-145)
== END 2025-05-23 14:55 | disposition home or self-care (01) ==
LOC: VM.ED 12:29
DX: I48.91 Unspecified atrial fibrillation (principal); I25.10 Atherosclerotic heart disease of native coronary artery without angina pectoris; I25.2 Old myocardial infarction; E78.00 Pure hypercholesterolemia, unspecified; J44.9 Chronic obstructive pulmonary disease, unspecified; E11.9 Type 2 diabetes mellitus without complications; E66.9 Obesity, unspecified; Z68.33 Body mass index [BMI] 33.0-33.9, adult; Z90.49 Acquired absence of other specified parts of digestive tract; Z90.710 Acquired absence of both cervix and uterus; Z79.84 Long term (current) use of oral hypoglycemic drugs; Z79.899 Other long term (current) drug therapy
CPT/HCPCS: 36415; 80053; 84484; 85025; 93005; 96374; 99285-25; J3490

== ENCOUNTER 2025-05-25 11:39 | Inpatient (IN) | payer MEDICARE, OTHER ==
[2025-05-25] MEDS: Diltiazem 50 MG/10 ML SDV IVPUSH ONE (11:58)
[2025-05-25 12:04] LABS: BASOPHILS ABSOLUTE AUTO 0.0 x10^3/uL (0.0-0.2); BASOPHILS PERCENT AUTO 0.3 % (0.2-1.2); EOSINOPHILS ABSOLUTE AUTO 0.0 x10^3/uL (0.0-0.5); EOSINOPHILS PERCENT AUTO 0.1 % (0.0-4.0); IMMATURE GRAN ABSOLUTE AUTO 0.04 x10^3/uL (0.00-0.07); IMMATURE GRAN PERCENT AUTO 0.30 % (0.00-0.43); LYMPHOCYTES ABSOLUTE AUTO 3.0 x10^3/uL (1.0-4.8); LYMPHOCYTES PERCENT AUTO 22.2 % (25.0-50.0); MONOCYTES ABSOLUTE AUTO 1.1 x10^3/uL (0.0-0.8); MONOCYTES PERCENT AUTO 7.8 % (2.0-11.0); NEUTROPHILS ABSOLUTE AUTO 9.4 x10^3/uL (1.8-7.7); NEUTROPHILS PERCENT AUTO 69.3 % (50.0-80.0); PLATELET COUNT,PLT 245 x10^3/uL (130-400); RED BLOOD CELL COUNT 3.93 x10^6/uL (4.00-5.50); WHITE BLOOD CELL COUNT,WBC 13.5 x10^3/uL (4.0-10.0)
[2025-05-25 12:28] LABS: A/G RATIO 0.89; ALANINE AMINOTRANSFERASE,ALT 43 U/L (14-59); ASPARTATE AMNIOTRANSFERASE,AST 25 U/L (15-37); BILIRUBIN TOTAL 0.4 mg/dL (0.2-1.0); BLOOD UREA NITROGEN,BUN 29 mg/dL (7-18); CARBON DIOXIDE,CO2 23 mmol/L (21-32); CHLORIDE,CL 105 mmol/L (98-107); CREATININE 1.9 mg/dL (0.55-1.02); ESTIMATED GFR 26 mL/min (>=60); GLUCOSE RANDOM 234 mg/dL (70-99); POTASSIUM,K 4.4 mmol/L (3.5-5.1); PRO B-TYPE NATRIUR PEPT,BNPPRO 15895 pg/mL (<=450); PROTEIN TOTAL,TP 7.0 g/dL (6.4-8.2); SODIUM,NA 140 mmol/L (136-145)
[2025-05-25] MEDS: Furosemide 40 MG/4 ML VIAL IV ONE (12:56)
[2025-05-25] MEDS ORDERED: Ondansetron 4 MG Tab.DIS PO PRN (14:34)
[2025-05-25] MEDS ORDERED: Acetaminophen/HYDROcodone 325-5 MG Tab PO PRN (14:34)
[2025-05-25] MEDS: Diltiazem 50 MG/10 ML SDV IVPUSH PRN (18:55)
[2025-05-26 07:21] LABS: BLOOD UREA NITROGEN,BUN 38.0 mg/dL (7-18); CARBON DIOXIDE,CO2 23.0 mmol/L (21-32); CHLORIDE,CL 103.0 mmol/L (98-107); CREATININE 2.1 mg/dL (0.55-1.02); EST CRCL DRUG DOSING (CG) 17.83 mL/min; GLUCOSE RANDOM 98.0 mg/dL (70-99); POTASSIUM,K 5.1 mmol/L (3.5-5.1); SODIUM,NA 136.0 mmol/L (136-145)
[2025-05-26 07:22] LABS: ESTIMATED GFR 23.0 mL/min (>=60)
[2025-05-26] MEDS: Furosemide 40 MG/4 ML VIAL IV SCH (08:37)
[2025-05-26] MEDS: Pantoprazole 20 MG Tab, Delayed Release PO SCH (08:43)
[2025-05-26] MEDS: Magnesium Sulfate 2 GM/50 mL 2 GM in Premix Bag 1 BAG IV ONE (09:41)
[2025-05-26] MEDS: Sodium Chloride 0.9% 10 ML Syringe FLUSH PRN (21:35)
[2025-05-27 07:00] LABS: BLOOD UREA NITROGEN,BUN 38.0 mg/dL (7-18); CARBON DIOXIDE,CO2 30.0 mmol/L (21-32); CHLORIDE,CL 104.0 mmol/L (98-107); CREATININE 1.9 mg/dL (0.55-1.02); EST CRCL DRUG DOSING (CG) 19.71 mL/min; GLUCOSE RANDOM 98.0 mg/dL (70-99); POTASSIUM,K 4.8 mmol/L (3.5-5.1); SODIUM,NA 138.0 mmol/L (136-145)
[2025-05-27 07:02] LABS: ESTIMATED GFR 26.0 mL/min (>=60)
[2025-05-27] MEDS ORDERED: 50% Dextrose in Water 50 ML Syringe IVPUSH PRN (13:20)
[2025-05-27] MEDS: Furosemide 20 MG/2 ML VIAL IV SCH (14:32)
[2025-05-28 07:06] LABS: BASOPHILS ABSOLUTE AUTO 0.0 x10^3/uL (0.0-0.2); BASOPHILS PERCENT AUTO 0.4 % (0.2-1.2); EOSINOPHILS ABSOLUTE AUTO 0.2 x10^3/uL (0.0-0.5); EOSINOPHILS PERCENT AUTO 2.3 % (0.0-4.0); IMMATURE GRAN ABSOLUTE AUTO 0.04 x10^3/uL (0.00-0.07); IMMATURE GRAN PERCENT AUTO 0.50 % (0.00-0.43); LYMPHOCYTES ABSOLUTE AUTO 2.1 x10^3/uL (1.0-4.8); LYMPHOCYTES PERCENT AUTO 25.9 % (25.0-50.0); MONOCYTES ABSOLUTE AUTO 1.2 x10^3/uL (0.0-0.8); MONOCYTES PERCENT AUTO 14.4 % (2.0-11.0); NEUTROPHILS ABSOLUTE AUTO 4.5 x10^3/uL (1.8-7.7); NEUTROPHILS PERCENT AUTO 56.5 % (50.0-80.0); RED BLOOD CELL COUNT 3.96 x10^6/uL (4.00-5.50); WHITE BLOOD CELL COUNT,WBC 8.0 x10^3/uL (4.0-10.0)
[2025-05-28 07:08] LABS: BLOOD UREA NITROGEN,BUN 35.0 mg/dL (7-18); CARBON DIOXIDE,CO2 31.0 mmol/L (21-32); CHLORIDE,CL 102.0 mmol/L (98-107); CREATININE 1.5 mg/dL (0.55-1.02); EST CRCL DRUG DOSING (CG) 24.97 mL/min; GLUCOSE RANDOM 132.0 mg/dL (70-99); POTASSIUM,K 4.4 mmol/L (3.5-5.1); SODIUM,NA 141.0 mmol/L (136-145)
[2025-05-28 07:10] LABS: PLATELET COUNT,PLT 153 x10^3/uL (130-400)
[2025-05-28 07:11] LABS: ESTIMATED GFR 35.0 mL/min (>=60)
[2025-05-28] MEDS: Diltiazem IR 60 MG Tab PO SCH (18:54)
[2025-05-29 06:59] LABS: BASOPHILS ABSOLUTE AUTO 0.0 x10^3/uL (0.0-0.2); BASOPHILS PERCENT AUTO 0.3 % (0.2-1.2); EOSINOPHILS ABSOLUTE AUTO 0.2 x10^3/uL (0.0-0.5); EOSINOPHILS PERCENT AUTO 2.0 % (0.0-4.0); IMMATURE GRAN ABSOLUTE AUTO 0.04 x10^3/uL (0.00-0.07); IMMATURE GRAN PERCENT AUTO 0.40 % (0.00-0.43); LYMPHOCYTES ABSOLUTE AUTO 2.0 x10^3/uL (1.0-4.8); LYMPHOCYTES PERCENT AUTO 20.0 % (25.0-50.0); MONOCYTES ABSOLUTE AUTO 1.3 x10^3/uL (0.0-0.8); MONOCYTES PERCENT AUTO 12.7 % (2.0-11.0); NEUTROPHILS ABSOLUTE AUTO 6.3 x10^3/uL (1.8-7.7); NEUTROPHILS PERCENT AUTO 64.6 % (50.0-80.0); PLATELET COUNT,PLT 244 x10^3/uL (130-400); RED BLOOD CELL COUNT 4.39 x10^6/uL (4.00-5.50); WHITE BLOOD CELL COUNT,WBC 9.8 x10^3/uL (4.0-10.0)
[2025-05-29 07:14] LABS: BLOOD UREA NITROGEN,BUN 32.0 mg/dL (7-18); CARBON DIOXIDE,CO2 32.0 mmol/L (21-32); CHLORIDE,CL 100.0 mmol/L (98-107); CREATININE 1.3 mg/dL (0.55-1.02); EST CRCL DRUG DOSING (CG) 28.81 mL/min; GLUCOSE RANDOM 142.0 mg/dL (70-99); POTASSIUM,K 4.4 mmol/L (3.5-5.1); SODIUM,NA 140.0 mmol/L (136-145)
[2025-05-29 07:17] LABS: ESTIMATED GFR 41.0 mL/min (>=60)
== END 2025-05-29 13:00 | disposition home or self-care (01) | DRG 291 ==
LOC: VM.ED 11:39 → VM.MS 13:54 → OBSVTOIN 16:38
PROVIDERS: ADMIT Family Medicine; ATTEND Internal Medicine
PROC: 5A09457 Assistance with Respiratory Ventilation, 24-96 Consecutive Hours, Continuous Positive Airway Pressure (ICD-10-PCS; principal; 2025-05-25)
DX: I48.91 Unspecified atrial fibrillation (principal); I13.0 Hypertensive heart and chronic kidney disease with heart failure and stage 1 through stage 4 chronic kidney disease, or unspecified chronic kidney disease; J96.01 Acute respiratory failure with hypoxia; J44.1 Chronic obstructive pulmonary disease with (acute) exacerbation; J44.9 Chronic obstructive pulmonary disease, unspecified; N17.9 Acute kidney failure, unspecified; E11.9 Type 2 diabetes mellitus without complications; E66.9 Obesity, unspecified; I47.20 Ventricular tachycardia, unspecified; I25.10 Atherosclerotic heart disease of native coronary artery without angina pectoris; G47.33 Obstructive sleep apnea (adult) (pediatric); H26.9 Unspecified cataract; E78.00 Pure hypercholesterolemia, unspecified; E11.51 Type 2 diabetes mellitus with diabetic peripheral angiopathy without gangrene; K21.9 Gastro-esophageal reflux disease without esophagitis; M81.0 Age-related osteoporosis without current pathological fracture; E11.22 Type 2 diabetes mellitus with diabetic chronic kidney disease; E11.42 Type 2 diabetes mellitus with diabetic polyneuropathy; E11.21 Type 2 diabetes mellitus with diabetic nephropathy; I48.0 Paroxysmal atrial fibrillation; I50.9 Heart failure, unspecified; G47.00 Insomnia, unspecified; E66.811 Obesity, class 1; N18.32 Chronic kidney disease, stage 3b; E83.42 Hypomagnesemia; Z99.89 Dependence on other enabling machines and devices; Z87.19 Personal history of other diseases of the digestive system; Z95.5 Presence of coronary angioplasty implant and graft; Z86.0100 Personal history of colon polyps, unspecified; I25.2 Old myocardial infarction; Z68.33 Body mass index [BMI] 33.0-33.9, adult; Z79.51 Long term (current) use of inhaled steroids; Z79.84 Long term (current) use of oral hypoglycemic drugs; Z79.899 Other long term (current) drug therapy; Z98.890 Other specified postprocedural states; Z98.49 Cataract extraction status, unspecified eye; Z90.89 Acquired absence of other organs; Z90.49 Acquired absence of other specified parts of digestive tract; Z90.710 Acquired absence of both cervix and uterus; Z87.891 Personal history of nicotine dependence; Z79.01 Long term (current) use of anticoagulants
CPT/HCPCS: 36415; 71045; 71046; 80048; 80053; 80162; 82947; 83735; 83880; 84484; 85025; 93005; 93010; 94760; 96365; 96366; 96374; 96375; 96376; 97116-GP; 97161-GP; 97165-GO; 97535-GO; 99223-GT; 99233-GT; 99284; 99285-25; A9270-GY; G0378; J1815-GY; J1938; J3475; J3490